=== PATIENT | female | born 1940 | race Caucasian/White ===

== ENCOUNTER 2016-05-22 18:05 | Emergency (ER) | payer MEDICARE, MEDICAID ==
[2016-05-22] MEDS ORDERED: HYDROmorphone 0.5 MG/0.5 ML Syringe IVPUSH ONE (18:20)
[2016-05-22] MEDS ORDERED: Ondansetron 4 MG/2 ML SDV IVPUSH ONE (18:20)
--- NOTE | 2016-05-22 18:25 | EDM.PDOC ---
<Andrew Hutchinson - Last Filed: 05/22/16 20:11> ED HPI Trauma - General Chief Complaint: Trauma Stated Complaint: [facility] Time Seen by Provider: 05/22/16 18:17 - History of Present Illness Allergies/ADRs: Allergies codeine Allergy (Verified 05/22/16 18:23) Cannot Remember hydrocodone Allergy (Verified 05/22/16 18:23) Cannot Remember Influenza Virus Vaccines Allergy (Verified 05/22/16 18:23) Cannot Remember pneumococcal vaccine Allergy (Verified 05/22/16 18:23) Cannot Remember Eawhvdz-Qbv-Uev Reductase Inhibitor Allergy (Verified 05/22/16 18:23) Cannot Remember Home Medications: Ambulatory Orders Acetaminophen 650 mg PO TID PRN 05/31/14 [Confirmed 05/22/16] Acetaminophen [Tylenol] 650 mg PO TID 05/31/14 [Confirmed 05/22/16] Bisacodyl [Dulcolax] 10 mg RECTAL DAILY PRN 05/31/14 [Confirmed 05/22/16] Calcium Carbonate [Tums] 200 mg PO Q2HR PRN 05/31/14 [Confirmed 05/22/16] Calcium Carbonate/Vitamin D3 [Calcium 600 + Vit D Tablet] 1 tab PO TID 05/31/14 [Confirmed 05/22/16] Carboxymethylcellulose Sodium [Refresh Tears 0.5%] 1 drop EYEBOTH QID PRN [Confirmed 05/22/16] Cholecalciferol (Vitamin D3) [Vitamin D3] 1,000 unit PO DAILY 05/31/14 [ Confirmed 05/22/16] Cranberry 405 mg PO BID 05/31/14 [Confirmed 05/22/16] Docusate Sodium/Sennosides [Senna Plus] 2 tab PO DAILY PRN 05/31/14 [Confirmed 05/22/16] Magnesium Hydroxide [Milk of Magnesia] 30 ml PO DAILY PRN 05/31/14 [Confirmed ] Memantine [Namenda Xr] 28 mg PO DAILY 05/31/14 [Confirmed 05/22/16] Metoprolol Succinate [Toprol XL] 50 mg PO DAILY 05/31/14 [Confirmed 05/22/16] Omeprazole 20 mg PO DAILY 05/31/14 [Confirmed 05/22/16] QUEtiapine [SEROquel XR] 100 mg PO BEDTIME 05/31/14 [Confirmed 05/22/16] QUEtiapine [SEROquel] 50 mg PO BID 05/31/14 [Confirmed 05/22/16] Bisacodyl [Correctol] 5 mg PO BEDTIME 05/22/16 [Confirmed 05/22/16] Cyanocobalamin (Vitamin B-12) [B-12] 1,000 mcg PO DAILY 05/22/16 [Confirmed ] Enalapril Maleate 5 mg PO DAILY 05/22/16 [Confirmed 05/22/16] Sennosides/Docusate Sodium [Senna-Docusate Sodium] 2 tab PO BEDTIME 05/22/16 [ Confirmed 05/22/16] Sertraline [Zoloft] 50 mg PO DAILY 05/22/16 [Confirmed 05/22/16] oxyCODONE 2.5 mg PO TID 05/22/16 [Confirmed 05/22/16] Course - Vital Signs Last Recorded V/S: Last Vital Signs Temp 36.6 C 05/22/16 18:12 Pulse 85 05/22/16 21:40 Resp 18 05/22/16 21:40 BP 141/80 H 05/22/16 21:40 Pulse Ox 98 05/22/16 21:40 - Orders/Labs/Meds Meds: Medications Discontinued Medications Generic Name Dose Route Start Last Admin Trade Name Lesly PRN Reason Stop Dose Admin Acetaminophen 650 mg 05/22/16 21:21 05/22/16 21:28 Tylenol PO 05/22/16 21:22 650 mg NOW ONE Administration Hydromorphone HCl 0.5 mg 05/22/16 18:20 05/22/16 18:50 Dilaudid IVPUSH 05/22/16 18:21 0.5 mg ONETIME ONE Administration Sodium Chloride 1,000 mls @ 125 mls/hr 05/22/16 18:30 05/22/16 18:47 Normal Saline IV 125 mls/hr ASDIRECTED DARRYN Administration Ondansetron HCl 4 mg 05/22/16 18:20 05/22/16 18:48 Zofran IVPUSH 05/22/16 18:21 4 mg ONETIME ONE Administration - Radiology Interpretation Free Text/Narrative:: 3-view radiographs of the left shoulder appears to demonstrate subtle irregularity of the humeral neck, consistent with a nondisplaced fracture. Formal read per the Radiologist pending. - Re-Assessments/Exams Free Text/Narrative Re-Assessment/Exam: 05/22/16 19:19 Given the radiographic appearance as described above, we will place the patient into a shoulder immobilizer, and have her followup with Ortho next week. Departure - Departure Time of Disposition: 20:12 Disposition: Home, Self-Care 01 Condition: fair Clinical Impression: Fracture of neck of left humerus Instructions: Humerus Fracture With Rehab-SportsMed Referrals: PCP,None [Primary Care Provider] - Shalom Holland MD [Physician] - Forms: ED Department Discharge Additional Instructions: Luisana was seen in the emergency room tonight after tripping and falling, injuring her left shoulder. X-rays of her left shoulder suggest a subtle fracture at the top of her left arm bone. She has been placed into a shoulder immobilizer. This can be removed for bathing, but otherwise should be kept on at all times. Give [id number] Tylenol or ibuprofen as needed for discomfort. We would like her to followup with the Orthopedic Surgeon Dr. Holland at the next available appointment. If any other problems, please do not hesitate to return Luisana to the ER. <Jose Oscar - Last Filed: 05/24/16 08:07> ED HPI Trauma - General Source: Reports: Patient History Limitations: Reports: Altered mental status (dementia. 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 She complains of pain in her left shoulder. She believes she may have bumped the back of her head on the floor as well. It's unclear whether this patient is mobile all the time. She is on multiple medications that would make her prone to loss of balance and fall. Med list does not reveal any blood thinners or 2 platelet inhibitors. The patient herself is quite significant dementia and is not able to provide a useful history. Symptom Onset Date: 05/22/16 Symptom Onset Time: 17:35 Occurred When: this afternoon Occurred Where: other (jail.) Method of Injury: other (Unwitnessed fall.) Severity: moderate Pain/Injury Location: Reports: upper extremity, left (Complaints of pain in her left upper shoulder. Can't lift it or forward flex or abduct it.) Consciousness: Reports: unsure Associated Symptoms: Reports: confusion. Denies: abdominal pain, chest pain, dizziness (She's always confused), headache, lightheadedness, muscle spasms, nausea/vomiting, neck pain, ringing in ears, seizures, shortness of breath, slurred speech, vision changes, other Past Medical History HEENT History: Reports: Other (see below) (Chronic dry eye syndrome.) Cardiovascular History: Reports: Hypertension Respiratory History: Reports: COPD (Mild.) Gastrointestinal History: Reports: Chronic constipation, GERD Genitourinary History: Reports: Urinary incontinence Musculoskeletal History: Reports: Arthritis, Back pain, chronic, Osteoarthritis , Osteoporosis (Hips and knees) Neurological History: Reports: Alzheimers disease Psychiatric History: Reports: Anxiety, Other (see below) (Chronic insomnia) Social & Family History - Tobacco Use Smoking Status *Q: Never Smoker - Alcohol Use Days Per Week of Alcohol Use: 0 - Recreational Drug Use Recreational Drug Use: No - Living Situation & Occupation Living situation: Reports: extended care facility (Currently resides in [facility].) Occupation: retired Review of Systems - Review of Systems Review Of Systems: Unable To Obtain (Unable to obtain with any degree of accuracy due to the patient's dementia.) Trauma Exam - Physical Exam Exam: See Below Exam Limited By: Altered mental status (Patient has severe dementia and therefore history and physical examination are limited as he can't understand what we're asking her to do.) General Appearance: Reports: no apparent distress, other (She's states that her left arm and shoulder area hurts but she can't localize where it hurts.). Denies: anxious, lethargic, obtunded Head: Reports: atraumatic, normocephalic, other (She believes she may have bumped the back of her head but I can find no palpable hematomas or swellings. She has normal range of motion of her cervical spine as well) Eyes: bilateral eye: normal inspection Throat/Mouth: Reports: Normal inspection, Normal lips, Normal oropharynx, Other. Denies: Normal teeth Neck: Reports: non-tender, full range of motion, normal alignment, normal inspection. Denies: limited range of motion, muscle spasm, painful range of motion, paraspinous muscle tender, stiff neck, tenderness, tender lateral Respiratory Exam: Reports: no respiratory distress, lungs clear, normal breath sounds, no accessory muscle use, chest non-tender. Denies: rib tenderness, right, rib tenderness, left Cardiovascular: Reports: regular rate, rhythm, no edema, no gallop, no murmur, no rub. Denies: normal peripheral pulses GI/Abdominal: Reports: normal bowel sounds, soft, non tender, no organomegaly, other (Moderately obese abdomen limits ability to palpate solid organs.) Back: Reports: vertebral tenderness (Mildly tender in her lumbar spine.) Extremities: Reports: other (She is unwilling to for Flexeril abductor left arm due to pain. On palpation I gave him a hematoma along the proximal or midshaft of the humerus. There is tenderness along the humeral head and may be partially dislocated. Or fractured she had pain on internal/external rotation of her right hip and nose fracture. Left hip and better range of motion without any pain. She has full pronation supination of her left forearm at the elbow without any signs of trauma to the elbow or the distal humerus.) Neurologic: Denies: oriented x 3, abnormal cerebellar tests Skin: Reports: Normal color, Warm/dry - Hinckley Coma Score Best Eye Response (Hinckley): (4) open spontaneously Best Verbal Response (Hinckley): (4) confused conversation Best Motor Response (Arthur): (5) localizes to pain Hinckley Total: 13 Course - Orders/Labs/Meds Meds: Medications Discontinued Medications Generic Name Dose Route Start Last Admin Trade Name Lesly PRN Reason Stop Dose Admin Acetaminophen 650 mg 05/22/16 21:21 05/22/16 21:28 Tylenol PO 05/22/16 21:22 650 mg NOW ONE Administration Hydromorphone HCl 0.5 mg 05/22/16 18:20 05/22/16 18:50 Dilaudid IVPUSH 05/22/16 18:21 0.5 mg ONETIME ONE Administration Sodium Chloride 1,000 mls @ 125 mls/hr 05/22/16 18:30 05/22/16 18:47 Normal Saline IV 125 mls/hr ASDIRECTED DARRYN Administration Ondansetron HCl 4 mg 05/22/16 18:20 05/22/16 18:48 Zofran IVPUSH 05/22/16 18:21 4 mg ONETIME ONE Administration - Radiology Interpretation Free Text/Narrative:: 75-year-old female presents to the ED for evaluation [facility] a [facility]. Apparently a she is mobile on her own volition without a gait aid. It is suspected that she tripped over another patient's walker and landed hard on her left shoulder. There is a tender right away and there was no signs that she hit her head hard enough to lose consciousness the Center. He did get up walking again and therefore no evidence of hip or pelvis fractures are identified. He continues to complain of pain in would not swing or use her left arm normally since the fall. I could find no other signs of trauma other than pain localized to the left shoulder. Plan left shoulder x-ray will be done.
[2016-05-22] MEDS ORDERED: Sodium Chloride 0.9% 1,000 ML IV SCH (18:30)
[2016-05-22] MEDS ORDERED: Acetaminophen 325 MG Tab PO ONE (21:21)
[2016-05-22 21:42] VITALS: BP 141/80
--- NOTE | 2016-05-24 08:01 | CR ---
Left shoulder: Three views of the left shoulder were obtained. Comparison: No previous study. Fracture identified at the base of the greater tuberosity. Equivocal sclerosis within the surgical neck possibly due to additional slightly impacted fracture. Mild degenerative change is noted within the acromioclavicular joint. Bony structures are osteopenic. Impression: 1. Proximal humeral fracture and other incidental findings as noted above. Diagnostic code #3
== END 2016-05-22 21:30 | disposition home or self-care (01) ==
LOC: JD.ED 18:05
DX: S42.212A Unspecified displaced fracture of surgical neck of left humerus, initial encounter for closed fracture (principal); I10 Essential (primary) hypertension; J44.9 Chronic obstructive pulmonary disease, unspecified; K21.9 Gastro-esophageal reflux disease without esophagitis; M19.90 Unspecified osteoarthritis, unspecified site; G30.9 Alzheimer's disease, unspecified; F41.9 Anxiety disorder, unspecified; Z88.7 Allergy status to serum and vaccine; Z88.5 Allergy status to narcotic agent; Z88.8 Allergy status to other drugs, medicaments and biological substances; W19.XXXA Unspecified fall, initial encounter
CPT/HCPCS: 73030; 96361; 96374; 96375; 99284; A9270; J1170; J2405; J7040

== ENCOUNTER 2016-10-08 17:49 | Emergency (ER) | payer MEDICARE, MEDICAID ==
[2016-10-08] MEDS ORDERED: Sodium Chloride 0.9% 10 ML Syringe FLUSH PRN (18:20)
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
[2016-10-08 22:12] VITALS: BP 166/79
== END 2016-10-08 22:05 | disposition home or self-care (01) ==
LOC: JD.ED 17:49
DX: F03.91 Unspecified dementia, unspecified severity, with behavioral disturbance (principal); I10 Essential (primary) hypertension; J44.9 Chronic obstructive pulmonary disease, unspecified; K21.9 Gastro-esophageal reflux disease without esophagitis; F41.9 Anxiety disorder, unspecified; Z88.5 Allergy status to narcotic agent; Z88.8 Allergy status to other drugs, medicaments and biological substances; Z79.899 Other long term (current) drug therapy
CPT/HCPCS: 36415; 80053; 81001; 85025; 99285; J7050; 99283